=== PATIENT | female | born 1950 | race Caucasian/White ===

== ENCOUNTER 2016-10-10 09:48 | Day surgery (SDC) | payer OTHER ==
[2016-10-10 11:04] VITALS: BMI 23.7
[2016-10-10] MEDS ORDERED: SUCCINYLCHOLINE CHLORIDE 200 MG/10 ML VIAL ONE (11:14)
[2016-10-10] MEDS ORDERED: CEFAZOLIN 1 GM in DEXTROSE 5%-WATER - 50 ML IVPB ONE (11:24)
[2016-10-10] MEDS ORDERED: ceFAZolin SODIUM 1 GM VIAL ONE (11:37)
[2016-10-10] MEDS ORDERED: IOHEXOL 300 MG/ML INFUS..BTL IV ONE (11:40)
[2016-10-10 12:32] VITALS: TEMP 98.1
[2016-10-10] MEDS ORDERED: ONDANSETRON 4 MG/2 ML VIAL ONE (12:48)
[2016-10-10 14:32] VITALS: BP 137/79; PULSE 84
--- NOTE | 2016-10-11 14:57 | PATH ---
Surgical Pathology Report Patient Name: ASHLYN FLOYD Med. Rec. #: [id number] /Age/Gender: 1950 (Age: 66) / F Account: [id number] Location: [facility]-ENDOSCOPY Taken: 10/10/2016 Received: 10/10/2016 Reported: 10/11/2016 Physicians: Sunil Mercedes M.D. Specimen(s) Received OLD STENT Clinical History Common bile duct stones Choledocholithiasis, clogged biliary stent Final Diagnosis OLD STENT, REMOVAL: STENT (GROSS EXAM). Electronically Signed Jesse Alston M.D. Gross Description Received fresh labeled "old stent" is a 14.5 cm in length blue, coiled portion of tubing, consistent with a biliary stent. No soft tissue is present. No sections are submitted, gross only. /10/10/201610/10/2016
== END 2016-10-10 14:15 | disposition home or self-care (01) ==
LOC: JASU-ENDO 09:48
PROVIDERS: ATTEND Internal Medicine Gastroenterology
PROC: 0F798DZ Dilation of Common Bile Duct with Intraluminal Device, Via Natural or Artificial Opening Endoscopic (ICD-10-PCS; 2016-10-10)
PROC: 0FPB8DZ Removal of Intraluminal Device from Hepatobiliary Duct, Via Natural or Artificial Opening Endoscopic (ICD-10-PCS; principal; 2016-10-10 10:30)
DX: K80.50 Calculus of bile duct without cholangitis or cholecystitis without obstruction (principal)
CPT/HCPCS: 74330-TC; 88300-TC

== ENCOUNTER 2017-07-06 08:39 | Day surgery (SDC) | payer OTHER ==
[2017-07-05 12:10] VITALS: BMI 31.9
[2017-07-06] MEDS ORDERED: INSULIN REGULAR HUMAN 100 UNITS/ML *VIAL SQ ONE (10:30)
--- NOTE | 2017-07-06 10:43 | HP ---
History & Physical Update - History History: No Change - Physical Physical: No Change - Assessment Assessment: No Change - Plan Plan: No Change
[2017-07-06] MEDS ORDERED: MIDAZOLAM HCL 2 MG/2 ML SINGLE DOSE VIAL ONE ×2 (11:04)
[2017-07-06] MEDS ORDERED: fentaNYL CITRATE 250 MCG/5 ML VIAL ONE (11:04)
[2017-07-06] MEDS ORDERED: ETOMIDATE 20 MG/10 ML AMPUL IVPUSH ONE (11:04)
[2017-07-06] MEDS ORDERED: ROCURONIUM BROMIDE 50 MG/5 ML VIAL ONE (11:18)
[2017-07-06] MEDS ORDERED: CLINDAMYCIN PHOSPHATE 600 MG/4 ML VIAL IVPB ONE (11:44)
[2017-07-06] MEDS ORDERED: PROPOFOL 20 ML ONE (11:48)
[2017-07-06] MEDS ORDERED: BUPIVACAINE HCL/PF 0.5% (5MG/ML) 10 ML VIAL IJ ONE (11:52)
[2017-07-06] MEDS ORDERED: NEOSTIGMINE METHYLSULFATE 0.5 MG/ML - 10 ML MDV ONE (12:21)
[2017-07-06] MEDS ORDERED: GLYCOPYRROLATE 0.2 MG/1 ML VIAL ONE (12:22)
--- NOTE | 2017-07-06 12:56 | OP ---
Operative Note - Note: Operative Date: 07/06/17 Pre-Operative Diagnosis: Chronic cholecystitis with cholelithiasis and choledocholithiasis Operation: Laparoscopic cholecystectomy and lysis of adhesions Findings: Distended GB dense omental adhesions to the GB Post-Operative Diagnosis: Other (OMENTAL ADHESIONS) Surgeon: Tank West [employer] Inspector: Paolo Du Anesthesia: General Estimated Blood Loss (mls): 15 Operative Report Dictated: Yes
[2017-07-06] MEDS ORDERED: ONDANSETRON 4 MG/2 ML VIAL IVPUSH PRN (12:58)
[2017-07-06] MEDS ORDERED: LACTATED RINGERS SOLUTION 1,000 ML IV SCH (13:00)
[2017-07-06] MEDS ORDERED: METOPROLOL TARTRATE 5 MG/5 ML VIAL IVPUSH ONE ×2 (13:55→15:17)
[2017-07-06] MEDS ORDERED: ONDANSETRON 4 MG/2 ML VIAL IVPUSH ONE (14:00)
[2017-07-06] MEDS ORDERED: METOPROLOL TARTRATE 5 MG/5 ML VIAL ONE (14:14)
[2017-07-06] MEDS ORDERED: ONDANSETRON 4 MG/2 ML VIAL ONE (14:18)
[2017-07-06] MEDS ORDERED: ACETAMINOPHEN 1000 MG/100 ML VIAL (NON FORMULARY) IVPB ONE ×2 (15:17→15:19)
[2017-07-06] MEDS ORDERED: oxyCODONE HCL 5 MG TABLET ONE (17:51)
[2017-07-06] MEDS: oxyCODONE HCL 5 MG TABLET PO PRN (18:00)
[2017-07-07] MEDS: oxyCODONE HCL 5 MG TABLET PO PRN ×2 (06:22→16:20)
[2017-07-07] MEDS: INSULIN SLIDING SCALE (NOVOLOG) 1 VIAL SQ SCH ×3 (06:22→17:40)
--- NOTE | 2017-07-07 08:07 | OP ---
DATE OF OPERATION: 07/06/2017 PROCEDURE: Laparoscopic cholecystectomy and lysis of adhesions. PREOPERATIVE DIAGNOSIS: Chronic cholecystitis with cholelithiasis and choledocholithiasis. POSTOPERATIVE DIAGNOSIS: Chronic cholecystitis with cholelithiasis and choledocholithiasis. SURGEON: Tank West MD AIR DUCT MECHANIC: DAKOTA Crump ANESTHESIA: General endotracheal. FINDINGS ON PROCEDURE: This is a 67-year-old female who in March of 2016 presented with acute cholecystitis and choledocholithiasis. Patient at the same time had acute coronary syndrome, so, patient was treated conservatively with ERCP and partial stent placement and was treated accordingly for the coronary artery disease. Patient subsequently had followup ERCP and removal of choledocholithiasis and stent placement. About 6 months later, patient had to undergo open heart surgery. So , now, patient had subsequent followups with the undersigned, and the initial plan was to delay removal of the gallbladder. After patient was cleared by the cardiology team, the common bile duct stent was removed, and the patient was scheduled for cholecystectomy. Consent was obtained after discussing the risks, benefits, and alternatives of the procedure. DESCRIPTION OF PROCEDURE: Patient was brought to the operating room and placed in supine position. General endotracheal anesthesia was then administered. The abdomen was prepped and draped in the usual sterile fashion. Using 0.5% Marcaine, local anesthesia was then administered to the proposed incision sites. The peritoneal cavity was entered using the Optiview technique via a 5-mm umbilical incision using the 5-mm 30-degree scope inserted in a 5-mm optical port. Pneumoperitoneum was established. The peritoneal cavity was carefully inspected , and it was noted to be free of inadvertent injury. The gallbladder was noted to be distended and contained dense omental adhesions. The patient was then placed in reverse Trendelenburg [id number] position. An 11-mm port was inserted at the subxiphoid region and two 5-mm ports were inserted at the subcostal region at the midclavicular and anterior axillary lines. At the fundus, patient was noted to have hepatomegaly, as well. The gallbladder fundus was grasped and retracted superiorly. The omental adhesions were taken down using the hook dissector connected to monopolar cautery until the infundibulum was encountered. This was grasped and retracted inferolaterally to the expose the triangle of Calot. The visceral peritoneum covering the triangle of Calot was scored to visualize the cystic duct and branching cystic artery. These structures were carefully dissected using the [place] dissector, and also the adhesion of the pylorus to the area of the triangle was dissected bluntly using the peanut dissector. After the cystic duct and cystic artery were carefully isolated with enough length, these structures were clipped at 3 points followed by transection, leaving 2 clips at each cystic artery and cystic duct stumps. The gallbladder was then resected from its bed in antegrade fashion using the hook dissector connected to monopolar cautery. Oozing from lysis of adhesions was controlled using Bovie cautery, and the blood from the Morisson's pouch as well as the right hepatic gutter were suctioned until the return was clear. The gallbladder was then placed in an Endobag and extracted via the subxiphoid incision. The pneumoperitoneum was evacuated, and the ports were removed. The wounds were closed with subcuticular Biosyn 4-0 sutures reinforced with Dermabond. The patient was successfully extubated and transferred to the post-anesthesia care unit in satisfactory condition. ESTIMATED BLOOD LOSS: About 15 mL. WOUND CLASS: Clean-contaminated. The patient received 600 mg of clindamycin prior to the start of the procedure. Jazmin [id number] MTDD
--- NOTE | 2017-07-07 13:30 | PN ---
Progress Note (short form) - Note Progress Note: S/P laparoscopic cholecystectomy yesterday. Admitted for 23 hour stay due to pain and urinary retention. Straight cath drained 500 cc of urine. Tolerating diet but still hasn't voided. Abd: wounds intact, mild wound tenderness, A: Doing well, post-op urinary retention P: Ambulate, bladder warm compress If unable to void, will D/C home with Sidhu to be removed next week upon office f/u.
[2017-07-07 15:08] VITALS: BP 131/76; PULSE 91; TEMP 99.4
--- NOTE | 2017-07-09 13:27 | PATH ---
Surgical Pathology Report Patient Name: ASHLYN FLOYD [facility]. Rec. #: [id number] /Age/Gender: 1950 (Age: 67) / F Account: [id number] Location: [facility] SURGICAL Taken: 07/06/2017 Received: 07/06/2017 Reported: 07/09/2017 Physicians: Tank West M.D. Specimen(s) Received GALLBLADDER Clinical History Chronic cholecystitis Final Diagnosis GALLBLADDER, CHOLECYSTECTOMY: CHRONIC CHOLECYSTITIS AND CHOLELITHIASIS. Electronically Signed Kaushik Pink M.D. Gross Description Received in formalin, labeled "gallbladder," is a 9.0 x 2.3 x 2.0 cm. gallbladder with a 0.2 cm. in length portion of cystic duct attached. The outer surface is ch-pink and varies from smooth to shaggy. The lumen contains black, sludgelike bile as well as multiple black, irregular to fragmented choleliths ranging from 0.1-0.8 cm in greatest dimension. The mucosa is ch and focally hyperemic. The wall of the gallbladder averages 0.2 cm. in thickness. Employee Operations Examiner sections are submitted in one cassette. /07/06/201707/06/2017
== END 2017-07-07 18:25 | disposition home or self-care (01) ==
LOC: JASU-SURG 08:39 → J6S 19:15 → JASU-SURG 07-07 18:25
PROVIDERS: ATTEND Surgery
PROC: 0FT44ZZ Resection of Gallbladder, Percutaneous Endoscopic Approach (ICD-10-PCS; principal; 2017-07-06 10:00)
DX: K80.10 Calculus of gallbladder with chronic cholecystitis without obstruction (principal); K80.50 Calculus of bile duct without cholangitis or cholecystitis without obstruction
CPT/HCPCS: 82962; 88304-TC; 94760

== ENCOUNTER 2018-01-16 07:35 | Day surgery (SDC) | payer OTHER ==
[2018-01-09 17:55] VITALS: BMI 35.4
[2018-01-16] MEDS ORDERED: PROPOFOL 20 ML ONE ×2 (07:38)
[2018-01-16] MEDS ORDERED: LIDOCAINE HCL/PF 2% SDV 5ML VIAL ONE (07:38)
[2018-01-16 09:37] VITALS: TEMP 97.6
[2018-01-16 09:38] VITALS: BP 144/75; PULSE 64
--- NOTE | 2018-01-17 16:48 | PATH ---
Surgical Pathology Report Patient Name: ASHLYN FLOYD [facility]. Rec. #: [id number] /Age/Gender: 1950 (Age: 67) / F Account: [id number] Location: [facility]UR[facility] Taken: 01/16/2018 Received: 01/16/2018 Reported: 01/17/2018 Physicians: Ming Youssef M.D. Specimen(s) Received A: TRANSVERSE B: RECTOSIGMOID C: BX RECTUM Clinical History Change in bowel habits Postoperative diagnosis: Polyps, rule out microscopic colitis Final Diagnosis A. TRANSVERSE COLON, BIOPSY: TUBULAR ADENOMA. B. RECTOSIGMOID COLON, BIOPSY: TUBULOVILLOUS ADENOMA C. RECTUM, BIOPSY: POLYPOID COLONIC MUCOSA WITH PROMINENT LYMPHOID AGGREGATE. Electronically Signed Anabel Fu M.D. Gross Description A. Received in formalin, labeled "transverse" is a ch, irregular portion of soft tissue measuring 0.5 cm. in greatest dimension. The specimen is submitted in toto in one cassette. B. Received in formalin, labeled "rectosigmoid" is a ch, irregular portion of soft tissue measuring 0.5 cm. in greatest dimension. The specimen is submitted in toto in one cassette. C. Received in formalin, labeled "rectum" are 2 ch, irregular portions of soft tissue measuring 0.3 and 0.4 cm. in greatest dimension. The specimens are submitted in toto in one cassette. DL/01/16/2018 saudi/01/16/2018
== END 2018-01-16 09:40 | disposition home or self-care (01) ==
LOC: FASU-ENDO 07:35
PROVIDERS: ATTEND Internal Medicine Gastroenterology
PROC: 0DBP8ZX Excision of Rectum, Via Natural or Artificial Opening Endoscopic, Diagnostic (ICD-10-PCS; 2018-01-16)
PROC: 0DBN8ZX Excision of Sigmoid Colon, Via Natural or Artificial Opening Endoscopic, Diagnostic (ICD-10-PCS; principal; 2018-01-16 08:34)
PROC: 0DBL8ZX Excision of Transverse Colon, Via Natural or Artificial Opening Endoscopic, Diagnostic (ICD-10-PCS; 2018-01-16 08:34)
DX: D12.3 Benign neoplasm of transverse colon (principal); D12.7 Benign neoplasm of rectosigmoid junction; K62.1 Rectal polyp; R19.7 Diarrhea, unspecified
CPT/HCPCS: 82962; 88305-TC